=== PATIENT | male | born 1995 | race Caucasian/White ===

== ENCOUNTER 2018-07-20 17:54 | Emergency (ER) | payer SELFPAY ==
[~2018-07-20] VITALS: Ht 190.5 cm; Wt 84.1 kg
[2018-07-20] MEDS ORDERED: IBUPROFEN 800 MG TABLET PO ONE (18:30)
[2018-07-20] MEDS ORDERED: BACITRACIN 0.9 GM PACKET OINTMENT TP ONE (18:30)
[2018-07-20] MEDS ORDERED: POVIDONE-IODINE 10% 15 ML SOLUTION UD TP ONE (18:30)
[2018-07-20 19:40] VITALS: BP 124/66
== END 2018-07-20 20:01 | disposition home or self-care (01) ==
LOC: EMS 17:54
DX: S01.01XA Laceration without foreign body of scalp, initial encounter (principal); S00.83XA Contusion of other part of head, initial encounter; V49.9XXA Car occupant (driver) (passenger) injured in unspecified traffic accident, initial encounter; Y93.89 Activity, other specified; Y92.89 Other specified places as the place of occurrence of the external cause; Y99.8 Other external cause status
CPT/HCPCS: 12001